=== PATIENT | female | born 1940 | race Caucasian/White ===

== ENCOUNTER → 2016-03-24 | Outpatient (CLI) | payer BC ==
[2016-03-24 13:27] LABS: ALT/SGPT 12 U/L (12-78); BASO ABS # 0.05 K/uL (0-0.2); BLOOD UREA NITROGEN 9 mg/dl (7-18); CALCIUM 9.3 mg/dl (8.5-10.1); CARBON DIOXIDE 30 mmol/L (21-32); CHLORIDE 105 mmol/L (98-107); CHOLESTEROL 185 mg/dl (0-200); COMPLETE YES; CREATININE 0.74 mg/dl (0.60-1.20); EOS % 3.6 %; GLUCOSE 85 mg/dl (70-99); HEMATOCRIT 42.8 % (37-47); IG% 0.2 %; LYMPH % 24.3 %; LYMPH ABS # 1.27 K/uL (1.2-3.4); MEAN CELL VOLUME 89.4 fL (80-100); MEAN CORPUSCULAR HEMOGLOBIN 30.1 pg (25-34); MEAN CORPUSCULAR HGB CONC 33.6 g/dl (32-36); MEAN PLATELET VOLUME 11.8 fL (7.4-10.4); MONO % 8.6 %; NEUT % 62.3 %; PLATELET COUNT 185 K/uL (130-400); POTASSIUM 4.1 mmol/L (3.5-5.1); RED BLOOD COUNT 4.79 M/uL (4.2-5.4); SODIUM 145 mmol/L (136-145); TRIGLYCERIDES 95 mg/dl (0-150); VERY LOW DENSITY LIPOPROT CALC 19 mg/dl; WHITE BLOOD COUNT 5.23 K/uL (4.8-10.8)
[2016-03-24 13:37] LABS: ALB/GLOB RATIO 1.4 (0.9-2); ALKALINE PHOSPHATASE 63 U/L (45-117); AST/SGOT 13 U/L (15-37); CHOLESTEROL/HDL RATIO 2.5; HDL CHOLESTEROL 75 mg/dl; LDL CHOLESTEROL CALCULATED 91 mg/dl
== END | disposition home or self-care (01) ==
LOC: C.LABMFLN 10:07
PROVIDERS: ATTEND Family Medicine
DX: K21.9 Gastro-esophageal reflux disease without esophagitis (principal); Z13.220 Encounter for screening for lipoid disorders; M85.80 Other specified disorders of bone density and structure, unspecified site